=== PATIENT | female | born 1995 | race Caucasian/White ===

== ENCOUNTER → 2021-03-26 17:50 | Outpatient (BNVA) | payer OTHER, SELFPAY | PROVIDERS: Visit Provider Emergency Medicine | DX: Z20.822 Contact with and (suspected) exposure to COVID-19 (principal) | CPT/HCPCS: 87635 ==

== ENCOUNTER 2021-09-02 10:42 | Emergency (ER) | payer OTHER, SELFPAY ==
[2021-09-02 10:49] VITALS: BP 126/86; PULSE 91; RESP 16; TEMP 36.8; O2SAT 97; BMI 21.7
--- NOTE | 2021-09-02 11:00 | PC.PHAR ---
pt states she takes no rx medications-pt states she has a iud-
--- NOTE | 2021-09-02 11:01 | W.ED.NAVMDI ---
HPI - Nausea/Vomiting/Diarrhea General: Chief complaint: Nausea/Vomiting/Diarrhea Stated complaint: n/v x4 days Time Seen by Provider: 09/02/21 10:50 History of Present Illness: HPI Narrative: Ms Holm is a 26-year-old lady without significant past medical history presents to the emergency department due to nausea, vomiting, diarrhea, and abdominal pain. Symptom onset was approximately 4 days ago and subacute. 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 The next morning she came into work and vomited twice at work before being sent home. Since that time she has had multiple episodes of nonbilious and nonbloody emesis as well as watery diarrhea. This is triggered by eating but also occurs when she does not eat. She also endorses generalized malaise, headache, and abdominal pain which is worse in the lower abdomen. Overall the course of symptoms has been worsening. She has tried home medications without significant leaf. Intensity is moderate to severe. No history of abdominal surgeries. No sick contacts. No other specific changes in health, exacerbating, or relieving factors identified. Review of Systems General: Reports: 10 or more systems reviewed and unremarkable except in HPI and below PFSH ED PFSH: Social History (Reviewed 09/05/21 @ 09:44 by Marielle De Paz [facility]) Smoking and tobacco status: never smoked Alcohol intake: never Female Reproductive History: Spontaneous abortions: No Physical Exam Narrative: EXAM NARRATIVE: GENERAL/CONSTITUTIONAL - mildly ill-appearing. Nontoxic Eyes - no scleral icterus, no conjunctival injection ENMT - Atraumatic external nose and ears. NECK - supple. trachea midline CARDIOVASCULAR - regular rate and rhythm. Normal peripheral perfusion RESPIRATORY - clear to auscultation bilaterally. No retractions or accessory muscle use. ABDOMEN/GI - generalized tenderness palpation worse in the bilateral lower quadrants. No evidence of peritonitis MSK - Extremities without obvious deformity or tenderness to palpation SKIN - Warm, Dry NEURO - alert and appropriately oriented. Moves all extremities equally. Course ED course: - Patient was seen and evaluated by me at bedside - Patient placed on cardiac monitors, IV access obtained - Initial evaluation notable for exam as above -Symptom treatments ordered - Labs notable for no leukocytosis, mild hemoconcentration. No acute electrolyte derangement. No evidence of urinary tract infection. Negative hCG. -Offered imaging after discussion of risks and benefits, patient declined imaging at this time. - Upon serial reexamination after treatment the patient was improved, she was able to tolerate p.o. intake. - Based on patient history, evaluation, labs, and imaging as interpreted the most likely cause of the patient's condition is abdominal pain, nausea, vomiting, and diarrhea of unclear etiology. - The results of ED evaluation were discussed with the patient including prescriptions and/or symptomatic cares (if applicable) including appropriate and responsible use, followup plan, and return precautions. The patient verbalized understanding and felt safe for discharge. - Patient discharged in satisfactory condition. Vital Signs: Vital signs: Vital Signs Temperature 98.2 F 09/02/21 10:49 Pulse Rate 83 09/02/21 12:04 Respiratory Rate 16 09/02/21 12:04 Blood Pressure 124/77 09/02/21 12:04 Pulse Oximetry 98 09/02/21 12:04 MDM - Nausea/Vomiting/Diarrhea Medical Records: Attestation: I reviewed the patient's medical records. Lab Data: Attestation: I reviewed the patient's lab results. Labs: Lab Results 09/02/21 09/02/21 09/02/21 11:28 11:28 12:05 WBC 5.2 10^3/uL 10^3/ uL (4.0-10.0) RBC 5.04 10^6/uL 10^6 /uL (4.1-5.3) Hgb 15.7 g/dL H g/dL (11.5-15.3) Hct 43.3 % % (37.0-47.0) MCV 85.9 fl fl (81-99) MCH 31.2 pg pg (28.0-34.0) MCHC 36.3 g/dL H g/dL (30.0-36.0) RDW 12.0 % L % (12.1-15.1) Plt Count 168 10^3/cmm 10^3 /cmm (130-400) MPV 9.3 fL fL (7.4-10.4) Neut % (Auto) 72.9 % % Lymph % (Auto) 16.4 % % Bulloch % (Auto) 9.1 % % Eos % (Auto) 1.0 % % Baso % (Auto) 0.4 % % Neut # (Auto) 3.78 10^3/uL 10^3 /uL (1.8-7.7) Lymph # (Auto) 0.9 10^3/uL 10^3/ uL (0.8-4.8) Bulloch # (Auto) 0.5 10^3/uL 10^3/ uL (0.2-0.9) Eos # (Auto) 0.1 10^3/uL 10^3/ uL (0.0-0.8) Baso # (Auto) 0.0 10^3/uL 10^3/ uL (0.0-0.1) Nucleated RBC % (a uto) 0 % % Nucleated RBCs # 0.0 /100WBC /100W BC Sodium 139 mmol/L mmol/L (136-145) Potassium 3.6 mmol/L mmol/L (3.5-5.1) Chloride 103 mmol/L mmol/L (98-107) Carbon Dioxide 22 mmol/L mmol/L (22-29) Anion Gap 17.6 (5-19) BUN 9 mg/dL mg/dL (6-20) Creatinine 0.7 mg/dL mg/dL (0.5-0.9) GFR Calculation 99.6 mL/min mL/mi n (90-130) Glucose 95 mg/dL mg/dL (65-115) Calculated Osmolal ity 286 mOsm/kg mOsm/ kg (285-295) Calcium 8.8 mg/dL mg/dL (8.5-10.5) Total Bilirubin 0.9 mg/dL mg/dL (0.15-1.2) AST 17 U/L U/L (0-32) ALT 14 U/L U/L (0-33) Alkaline Phosphata se 56 IU/L IU/L (35-105) Total Protein 8.0 g/dL g/dL (6.6-8.7) Albumin 4.7 g/dL g/dL (3.5-5.2) Globulin 3.3 g/dL g/dL (1.3-4.6) Lipase 19 U/L U/L (13-60) HCG, Qual Negative (Negative) Urine Color Urine Appearance Urine pH Ur Specific Gravit y Urine Protein Urine Glucose (UA) Urine Ketones Urine Blood Urine Nitrate Urine Bilirubin Urine Urobilinogen Ur Leukocyte Shabnam ase 09/02/21 12:05 WBC RBC Hgb Hct MCV MCH MCHC RDW Plt Count MPV Neut % (Auto) Lymph % (Auto) Bulloch % (Auto) Eos % (Auto) Baso % (Auto) Neut # (Auto) Lymph # (Auto) Bulloch # (Auto) Eos # (Auto) Baso # (Auto) Nucleated RBC % (a uto) Nucleated RBCs # Sodium Potassium Chloride Carbon Dioxide Anion Gap BUN Creatinine GFR Calculation Glucose Calculated Osmolal ity Calcium Total Bilirubin AST ALT Alkaline Phosphata se Total Protein Albumin Globulin Lipase HCG, Qual Urine Color Yellow (Yellow) Urine Appearance Clear (CLEAR) Urine pH 5 (5-7) Ur Specific Gravit y 1.020 (1.005-1.030) Urine Protein Neg (Negative) Urine Glucose (UA) Norm (Normal) Urine Ketones Negative (Negative) Urine Blood Neg (Negative) Urine Nitrate Negative (Negative) Urine Bilirubin 1+ H (Negative) Urine Urobilinogen 1 mg/dL H mg/dL (Negative) Ur Leukocyte Shabnam ase Negative (Negative) Discharge Plan Discharge Patient Disposition: Home Clinical Impression: Nausea vomiting and diarrhea, Dehydration Abdominal pain Qualifiers: Abdominal location: generalized Qualified Code(s): R10.84 - Generalized abdominal pain Condition: Stable Prescriptions: No Action omeprazole 20 mg capsule,delayed release(DR/EC) 20 mg PO ONCE Qty: 30 RF: 0 dicyclomine 20 mg tablet 20 mg PO TID Qty: 30 RF: 0 Imodium 2 mg Capsule 2 mg PO Q4H PRN (Reason: Diarrhea) RF: 0 Tylenol Ex Str Rapid Release 500 mg Tablet 1,000 mg PO Q4H PRN (Reason: Pain) RF: 0 Discharge Orders: Discharge ED (Routine); Ordered 09/02/21 Ordered By: Augustine Brown Discharge Diet: Advance as tolerated and Clear Liquid Discharge Activity: Increase activity as tolerated Patient Instructions: Diarrhea - Adult, Acute Nausea and Vomiting (ED), Abdominal Pain (ED) Activity Restrictions/Additional Instructions: Thank you for visiting the emergency department. You were seen and evaluated for nausea, vomiting, diarrhea, and abdominal pain. The exact cause of your symptoms is uncertain though likely viral in nature. Please ensure that you are staying hydrated. You will be sent home with a prescription for nausea medication. Please return to the emergency department for uncontrolled pain, fevers, blood in stool or vomit, or anything else that you are concerned about and feel needs emergency department evaluation. Coding Level of Care Code ED Blocker And Polisher Gold Wheel for Francisco Weaver
[2021-09-02] MEDS: ondansetron 2 mg/ML SDV 2 mL 4 MG IVP (11:32)
[2021-09-02] MEDS: ketorolac 30 mg/mL INJ 15 MG IVP (11:33)
[2021-09-02 11:34] LABS: Basophils % 0.4 %; Eosinophils # 0.1 10^3/uL (0.0-0.8); Hematocrit 43.3 % (37.0-47.0); Hemoglobin 15.7 g/dL (11.5-15.3); Lymphocytes # 0.9 10^3/uL (0.8-4.8); Lymphocytes % 16.4 %; Mean Corpuscular HGB Conc 36.3 g/dL (30.0-36.0); Mean Corpuscular Hemoglobin 31.2 pg (28.0-34.0); Mean Corpuscular Volume 85.9 fl (81-99); Mean Platelet Volume 9.3 fL (7.4-10.4); Monocytes # 0.5 10^3/uL (0.2-0.9); Monocytes % 9.1 %; Neutrophils # 3.78 10^3/uL (1.8-7.7); Neutrophils % 72.9 %; Nucleated Red Blood Cells % 0 %; Platelet Count 168 10^3/cmm (130-400); Red Blood Count 5.04 10^6/uL (4.1-5.3); White Blood Count 5.2 10^3/uL (4.0-10.0)
[2021-09-02] MEDS: sodium chloride 0.9% 1,000 ML 999 ML IV (11:35)
[2021-09-02 11:37] VITALS: BP 126/86; PULSE 88; RESP 16
[2021-09-02 12:02] LABS: Alanine Aminotransferase 14 U/L (0-33); Albumin Level 4.7 g/dL (3.5-5.2); Alkaline Phosphatase 56 IU/L (35-105); Aspartate Amino Transferase 17 U/L (0-32); Blood Urea Nitrogen 9 mg/dL (6-20); Calcium 8.8 mg/dL (8.5-10.5); Carbon Dioxide 22 mmol/L (22-29); Chloride 103 mmol/L (98-107); Globulin 3.3 g/dL (1.3-4.6); Glomerular Filtration Rate 99.6 mL/min (90-130); Glucose 95 mg/dL (65-115); Lipase 19 U/L (13-60); Osmolality Calculated 286 mOsm/kg (285-295); Sodium 139 mmol/L (136-145); Total Bilirubin 0.9 mg/dL (0.15-1.2)
[2021-09-02 12:03] VITALS: BP 114/61; BP 119/75; BP 124/77; PULSE 72; PULSE 77; PULSE 83
[2021-09-02 12:04] VITALS: BP 124/77; PULSE 83; RESP 16; O2SAT 98
[2021-09-02 12:10] LABS: Add Urine Microscopic? NO; Charge for UA Resulting for Rev
[2021-09-02 12:10] LABS: Anion Gap 17.6 (5-19); Potassium 3.6 mmol/L (3.5-5.1)
[2021-09-02 12:15] LABS: Bilirubin Urine 1+ (Negative); Blood Urine Neg (Negative); Glucose Urine UA Norm (Normal); HCG Qualitative Urine. Negative (Negative); Ketones Urine Negative (Negative); Leukocyte Esterase Urine Negative (Negative); Nitrate Urine Negative (Negative); Protein Urine Neg (Negative); Urine Appearance Clear (CLEAR); Urine Color Yellow (Yellow); Urobilinogen Urine 1 mg/dL (Negative); pH Urine 5 (5-7)
[2021-09-02] MEDS: potassium chloride ER 20 mEq Tablet 40 MEQ PO (12:27)
[2021-09-02] MEDS: ondansetron 4 MG Tablet 8 MG PO (12:57)
== END 2021-09-02 12:59 | disposition home or self-care (01) ==
PROVIDERS: Emergency Provider Emergency Medicine
DX: R11.2 Nausea with vomiting, unspecified (principal); R19.7 Diarrhea, unspecified; R10.84 Generalized abdominal pain; E86.0 Dehydration
CPT/HCPCS: 80053; 81003; 81025; 83690; 85025; 96361; 96374; 96375; 99284; J1885; J2405; J7030; Q0162

== ENCOUNTER → 2022-02-19 11:47 | Outpatient (BNVA) | payer OTHER, SELFPAY | PROVIDERS: Visit Provider Emergency Medicine | DX: R10.2 Pelvic and perineal pain (principal); R30.0 Dysuria; N39.0 Urinary tract infection, site not specified | CPT/HCPCS: 81000; 87491 ==

== ENCOUNTER → 2022-06-01 10:08 | Outpatient (BNVA) | payer OTHER, MEDICAID, SELFPAY | PROVIDERS: Visit Provider Podiatrist Foot & Ankle Surgery | DX: M20.11 Hallux valgus (acquired), right foot (principal); M20.12 Hallux valgus (acquired), left foot; M77.41 Metatarsalgia, right foot; M77.42 Metatarsalgia, left foot | CPT/HCPCS: 73630 ==

== ENCOUNTER → 2022-08-15 10:23 | Outpatient (BNVA) | payer OTHER, MEDICAID, SELFPAY | PROVIDERS: Visit Provider Emergency Medicine | DX: R68.89 Other general symptoms and signs (principal); J02.9 Acute pharyngitis, unspecified; Z20.818 Contact with and (suspected) exposure to other bacterial communicable diseases | CPT/HCPCS: 87071; 87400; 87880 ==

== ENCOUNTER → 2022-12-29 11:01 | Outpatient (BNVA) | payer OTHER, MEDICAID, SELFPAY | PROVIDERS: Visit Provider Nurse Practitioner Family | DX: J02.9 Acute pharyngitis, unspecified (principal) | CPT/HCPCS: 87071; 87880 ==

== ENCOUNTER → 2023-08-30 08:22 | Outpatient (BNVA) | payer OTHER, MEDICAID, SELFPAY | PROVIDERS: Visit Provider Nurse Practitioner Family | DX: J02.9 Acute pharyngitis, unspecified (principal) | CPT/HCPCS: 87880 ==

== ENCOUNTER → 2023-12-13 17:02 | Outpatient (BNVA) | payer OTHER, MEDICAID, SELFPAY | PROVIDERS: Visit Provider Emergency Medicine | DX: R05.9 Cough, unspecified (principal) | CPT/HCPCS: 87400 ==